=== PATIENT | male | born 1985 | race African-American/Black ===

== ENCOUNTER 2017-11-10 12:09 | Emergency (ER) | payer SELFPAY, MEDICAID | END 2017-11-10 13:02 | disposition home or self-care (01) | LOC: M ED 12:09 | DX: S39.012A Strain of muscle, fascia and tendon of lower back, initial encounter (principal); X58.XXXA Exposure to other specified factors, initial encounter; Y92.89 Other specified places as the place of occurrence of the external cause; F17.210 Nicotine dependence, cigarettes, uncomplicated | CPT/HCPCS: 99282 ==

== ENCOUNTER 2018-03-30 08:08 | Emergency (ER) | payer OTHER, SELFPAY ==
[2018-03-30] MEDS: LISSAMINE GREEN OPHTH 1.5 MG STRIP OS (08:30)
[2018-03-30] MEDS: TETRACAINE 0.5% OPHTH SOLN 4ML OS (08:30)
== END 2018-03-30 08:52 | disposition home or self-care (01) ==
LOC: M ED 08:08
DX: S05.02XA Injury of conjunctiva and corneal abrasion without foreign body, left eye, initial encounter (principal); W50.0XXA Accidental hit or strike by another person, initial encounter; Y92.9 Unspecified place or not applicable; Y93.67 Activity, basketball; Y99.9 Unspecified external cause status
CPT/HCPCS: 99283